=== PATIENT | female | born 2000 | race Caucasian/White ===

== ENCOUNTER 2024-11-20 18:02 | Emergency (ER) | payer OTHER, SELFPAY ==
[2024-11-20 18:04] VITALS: BP 133/87; PULSE 80; RESP 16; TEMP 36.6; O2SAT 97
[2024-11-20] MEDS: Normal Saline - Diluent 50 ML VIAL IJ (19:14)
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
--- OUTSIDE RECORDS SUMMARY | 2024-11-20 19:44 | XMS_ITS | Encounter Summary ---
Author Organization [facility] Address [address] [place] [id number] Care Team Providers Care School Standards Coach Name Role Phone Unavailable Primary Care Provider Unavailabl e Encounter Details Date Type Department Care Team (Late st Contact Info) Description 05/22/2023 Lab Requisition [facility] Pathology & Laboratory Medicine - [facility] [address] [place] [address] Outr Resulting Lab, Provider Social History Tobacco Use Types Packs/Day Years Used Date Smoking Tobacco: Never Assessed Interpersonal Safety Answer Date Record ed Physically Hurt Never 09/16/2020 Verbally Threaten Not on file 09/16/2020 Comments Unknown Sex and Gender Information Value Date Recorded Sex Assigned at Not on file Legal Sex Female 9:53 EST Gender Identity Not on file Sexual Orientation Not on file documented as of this encounter Plan of Treatment Not on file documented as of this encounter Procedures Procedure Name Priority Date/Time Associated Diagnosis Comments CHLAMYDIA/N. GONORRHOEAE AMPLIFIED NUCLEIC ACID, THINPREP Routine 05/22/2023 10:00 EDT documented in this encounter Results * CHLAMYDIA/N. GONORRHOEAE AMPLIFIED RNA, THINPREP (05/22/2023 10:00 EDT) Neisseria gonorrhoeae Result Negative Negative 05/23/2023 14:24 EDT [facility] Chlamydia trachomatis Result Negative Negative 05/23/2023 14:24 EDT [facility] Papanicolaou smear specimen (specimen) CERVIX UTERI STRUCTURE / Unknown 05/22/2023 10:00 EDT 05/23/2023 8:58 EDT us Provider Outr Resulting Lab MICROBIOLOGY - GENER AL ORDERABLES Final Result Performing Organization Address City/State/[facility] Co de Phone Number [facility] [address] [place] [address] documented in this encounter Visit Diagnoses Not on filedocumented in this encounter
--- OUTSIDE RECORDS SUMMARY | 2024-11-20 19:44 | XMS_ITS | Encounter Summary ---
Author Organization [facility] Address [address] [place] [id number] Care Team Providers Care Acura Sales Consultant Name Role Phone Unavailable Primary Care Provider Unavailabl e Encounter Details Date Type Department Care Team (Late st Contact Info) Description 04/24/[address] [facility] Pathology & Laboratory Medicine - [facility] [address] [place] [address] Outr Resulting Lab, Provider Social History Tobacco [...] Associated Diagnosis Comments CHLAMYDIA/N. GONORRHOEAE AMPLIFIED NUCLEIC ACID Routine 04/24/2023 12:49 EDT documented in this encounter Results * CHLAMYDIA/N. GONORRHOEAE AMPLIFIED RNA (04/24/2023 12:49 EDT) Neisseria gonorrhoeae Result Negative Negative 04/25/2023 13:18 EDT [facility] Chlamydia trachomatis Result Negative Negative 04/25/2023 13:18 EDT [facility] Swab ENTIRE VAGINA / Unknown 04/24/2023 12:49 EDT 04/25/2023 8:46 EDT us Provider Outr Resulting Lab MICROBIOLOGY - GENER AL ORDERABLES Final Result [facility] [address] [place] [address] documented in this encounter Visit Diagnoses Not on filedocumented in this encounter
--- OUTSIDE RECORDS SUMMARY | 2024-11-20 19:44 | XMS_ITS | Clinical Summary ---
Author Organization [facility] Address [address] [place] [address] Care Team Providers Care Timber Hand Name Role Phone Unavailable Primary Care Provider Unavailabl e Social History Tobacco Use Types Packs/Day Years Used Date Smoking Tobacco: Never Assessed Interpersonal Safety Answer Date Record ed Physically Hurt Never 09/16/2020 Verbally Threaten Not on file 09/16/2020 Comments Unknown Sex and Gender Information Value Date Recorded Sex Assigned at Not on file Legal Sex Female 9:53 EST Gender Identity Not on file Sexual Orientation Not on file Plan of Treatment Health Maintenance Due Date Last Done Comments Hepatitis C Screen 2001 Hepatitis B Vaccine (1 of 3 - 19+ 3-dose series) 09/20 COVID-19 Vaccine ( season) 2024
--- OUTSIDE RECORDS SUMMARY | 2024-11-20 19:44 | XMS_ITS | Encounter Summary ---
Author Organization [facility] Address [address] [place] [id number] Care Team Providers Care Brake Operator Sheet Metal Name Role Phone Unavailable Primary Care Provider Unavailabl e Encounter Details Date Type Department Care Team (Late st Contact Info) Description 09/16/2020 Lab Requisition [facility] Pathology & Laboratory Medicine - [address] [address] Outr Resulting Lab, Provider Social History Tobacco [...] Diagnosis Comments CHLAMYDIA/N. GONORRHOEAE AMPLIFIED NUCLEIC ACID After X-Ray 08/25/2020 11:08 EST documented in this encounter Results * CHLAMYDIA/N. GONORRHOEAE AMPLIFIED RNA (08/25/2020 11:08 EST) Neisseria gonorrhoeae Result Negative Negative 10/01/2020 14:10 EST [facility] Chlamydia trachomatis Result Negative Negative 10/01/2020 14:10 EST [facility] NACHO 08/25/2020 11:0 8 EST 10/01/2020 14:08 EST us Provider Outr Resulting Lab MICROBIOLOGY - GENER AL ORDERABLES Final Result [facility] [address] [place] [address] documented in this encounter Visit Diagnoses Not on filedocumented in this encounter
--- OUTSIDE RECORDS SUMMARY | 2024-11-20 19:44 | XMS_ITS | Encounter Summary ---
Author Organization [facility] Address [address] [place] [address] Care Team Providers Care Metal Checker Name Role Phone Unavailable Primary Care Provider Unavailabl e Encounter Details Date Type Department Care Team (Late st Contact Info) Description 05/22/2023 Lab Requisition [facility] Pathology & Laboratory Medicine - [facility] [address] [place] [address] Demetrio Luis APRN [address] [place] [address] [address] [place], [place] [id number] Encounter for other general examination Social History Tobacco Use Types Packs/Day Years [...] Procedure Name Priority Date/Time Associated Diagnosis Comments PAP TEST Today 05/22/2023 10:00 EDT documented in this encounter Results * PAP TEST (05/22/2023 10:00 EDT) Specimens A. Cervix and/or Endocervix , ThinPrep Imaging System with Manual Evaluation 05/30/2023 11:50 EDT [facility] Specimen Adequacy Satisfactory for Evaluation - transformation zone component absent 05/30/2023 11:50 EDT [facility] General Categorization Negative for intraepithelial lesion or malignancy 05/30/2023 11:50 EDT [facility] Attestation . 05/30/2023 11:50 EDT [facility] at 1150 Clinical History SEE BELOW 05/30/20 11:50 EDT [facility] Performing Lab [facility] 05/30/2023 11:50 EDT [facility] Scanned Images 05/30/2023 11:50 EDT [facility] Papanicolaou smear specimen (specimen) CERVIX UTERI STRUCTURE / Unknown 05/22/2023 10:00 EDT 05/24/2023 14:12 EDT us Demetrio Luis UPTWISTER TENDER PATHOLOGY ORDERABLES Final Resu lt [facility] [address] [place] [address] documented in this encounter Visit Diagnoses Diagnosis Encounter for other general examination documented in this encounter
--- OUTSIDE RECORDS SUMMARY | 2024-11-20 19:44 | XMS_ITS | Encounter Summary ---
Author Organization [facility] Address [address] [place] [id number] Care Team Providers Care Furnace Mechanic Name Role Phone Unavailable Primary Care Provider Unavailabl e Encounter Details Date Type Department Care Team (Late st Contact Info) Description 03/23/2023 Lab Requisition [facility] Pathology & Laboratory Medicine - [facility] [address] [place] [address] Outr Resulting Lab, Provider Social History Tobacco [...] Comments CHLAMYDIA/N. GONORRHOEAE AMPLIFIED NUCLEIC ACID Routine 03/23/2023 14:56 EDT documented in this encounter Results * (ABNORMAL) CHLAMYDIA/N. GONORRHOEAE AMPLIFIED RNA (03/23/2023 14:56 EDT) Neisseria gonorrhoeae Result Positive(A) Negative 03/24/2023 13:27 EDT [facility] Chlamydia trachomatis Result Negative Negative 03/24/2023 13:27 EDT [facility] Swab ENTIRE VAGINA / Unknown 03/23/2023 14:56 EDT 03/23/2023 22:30 EDT us Provider Outr Resulting Lab MICROBIOLOGY - GENER AL ORDERABLES Final Result [facility] [address] [place] [address] documented in this encounter Visit Diagnoses Not on filedocumented in this encounter
--- OUTSIDE RECORDS SUMMARY | 2024-11-20 19:44 | XMS_ITS | Referral Summary ---
Author Organization [facility] Address [address] [place] [address] Care Team Providers Care Manager Staffing Name Role Phone Unavailable Primary Care Provider [...] Orientation Not on file Plan of Treatment Not on file
--- OUTSIDE RECORDS SUMMARY | 2024-11-20 19:44 | XMS_ITS | Encounter Summary ---
Author Organization [facility] Address [address] [place] [address] Care Team Providers Care Manager Telemetry Name Role Phone Unavailable Primary Care Provider Unavailabl e Encounter Details Date Type Department Care Team (Late st Contact Info) Description 08/22/2023 Lab Requisition [facility] [address] [place] [address] Outr Resulting Lab, Provider Social History Tobacco [...] Procedure Name Priority Date/Time Associated Diagnosis Comments AMPHETAMINE CONFIRMATION PANEL Routine 08/22/2023 10:57 EDT documented in this encounter Results * (ABNORMAL) AMPHETAMINE CONFIRMATION PANEL (08/22/2023 10:57 EDT) Amphetamine Confirmation >2000(A) <100 ng/mL 08/24/2023 12:40 EDT [facility] Methamphetamine Confirmation Negative <100 ng/mL 08/24/2023 12:40 EDT [facility] Urine URINE / Unknown 08/22/2023 1 0:57 EDT 08/22/2023 22:14 EDT [facility]ative [facility] 08/24/2023 12:40 EDT Testing performed by: [facility] [address] [place] [address], [address] [address] [employer]it Operator: Isaac Azevedo MD; CLIA # [id number] us Provider Outr Resulting Lab GEN LAB UNIT COLLECT ORDERABLES Final Result Performing Organization Address City/State/[facility] Co de Phone Number [facility] [address] [facility], [address] [phone] documented in this encounter Visit Diagnoses Not on filedocumented in this encounter
[2024-11-20 20:50] VITALS: BP 113/62; PULSE 84; RESP 16; TEMP 36.4; O2SAT 98
== END 2024-11-20 20:53 | disposition home or self-care (01) ==
PROVIDERS: Emergency Provider Student in an Organized Health Care Education/Training Program
DX: M54.2 Cervicalgia (principal); W49.09XA Other specified item causing external constriction, initial encounter; Y09 Assault by unspecified means; R11.0 Nausea; F17.290 Nicotine dependence, other tobacco product, uncomplicated
CPT/HCPCS: 70498; 72125; 81025; 99285; 70450; 99283